=== PATIENT | male | born 1965 | race Caucasian/White ===

== ENCOUNTER → 2025-08-10 15:38 | Outpatient (REF) | payer OTHER, SELFPAY | LOC: HWRAD 15:38 | PROVIDERS: ATTENDING PHYSICIAN Nurse Practitioner Adult Health | DX: M54.12 Radiculopathy, cervical region (principal) | CPT/HCPCS: 72050 ==

== ENCOUNTER → 2025-09-24 17:13 | Outpatient (REF) | payer OTHER, SELFPAY | LOC: PAVMRI 17:13 | PROVIDERS: ATTENDING PHYSICIAN Nurse Practitioner Adult Health | DX: M54.12 Radiculopathy, cervical region (principal); M50.30 Other cervical disc degeneration, unspecified cervical region; M48.02 Spinal stenosis, cervical region; Z91.81 History of falling | CPT/HCPCS: 72141 ==

== ENCOUNTER 2025-09-30 12:43 | Emergency (ER) | payer OTHER, SELFPAY ==
[2025-09-30 12:45] VITALS: BP 141/88
[2025-09-30] MEDS: DECADRON 10 MG PO (16:44)
[2025-09-30] MEDS: TORADOL 30 MG IM (16:44)
--- NOTE | 2025-09-30 16:55 | ED.GENMED ---
History of Present Illness
General
Chief Complaint: Musculo-Skeletal Complaint
Source: patient
Exam Limitations: none
Time Seen by Provider: 09/30/25 16:13
Nursing documentation reviewed up to this point in time: agreed with
History of Present Illness
History of Present Illness:
60-year-old male presenting to the emergency department today with concerns of discomfort to his back that started 5 days ago now with some radiation of symptoms down to the left thigh and left knee. She is do worse with some positions and
movement. Seems to be improved finding a comfortable position. Denies any change in bowel or bladder function denies any fevers no redness or warmth.
Past History
Past History
ED Past Medical History: Psychiatric (anxiety) and Other (covid-19 12/2019)
ED Past Surgical History: Orthopedic
Social History
Tobacco: Non-smoker
Alcohol: Occasional
Drug: None
Living: with family
Employment: Employed
Family History
Family History: Early CAD (Brother had TX in his 50s)
Review of Systems
Review of Systems
Allergies reviewed?: Yes
All Other Systems: ROS reviewed and negative except as documented in HPI and ROS
Phy Exam
Physical Exam
Physical Exam:
GENERAL: Alert , in no apparent distress
EYE: pupils equal and reactive
NECK: Supple, no significant adenopathy.
ENT: o/p clr, mmm.
CARDIAC: Regular rate and rhythm .
LUNGS: Clear breath sounds bilaterally, no acute respiratory distress, no wheezes/rales/rhonchi
ABDOMEN: Soft, without focal tenderness, no r/g, no cvat
NEUROLOGICAL: Alert and oriented, no focal neuro deficits
SKIN: Warm and dry, skin intact.
MUSCULOSKELETAL: No edema, well perfused.
PSYCH: Normal and appropriate interaction.
Course
Orders/Labs/Results
Orders:
Orders
09/30/25 12:49
Lumbar Spine, 2 or 3 View [CR Lumbar Spine 2 Or 3 Views] Urgent
Comment:
Reason For Exam: lower back/leg pain
09/30/25 16:27
Dexamethasone Pf [Decadron] 10 mg PO NOW STA
Ketorolac [Toradol] 30 mg IM NOW STA
Vital Signs
Initial and Last Documented VS:
Initial Vital Signs
Temp Pulse Resp BP Pulse Ox
97.7 F 72 18 141/88 97
09/30/25 12:45 09/30/25 12:45 09/30/25 12:45 09/30/25 12:45 09/30/25 12:45
Last Documented Vital Signs
Temp Pulse Resp BP Pulse Ox
97.7 F 72 18 141/88 97
09/30/25 12:45 09/30/25 12:45 09/30/25 12:45 09/30/25 12:45 09/30/25 16:56
MDM/Problems Addressed
MDM/Problems Addressed:
60-year-old male presenting to the emergency department today with concerns of discomfort to his left low back with radiation down the left leg to the left thigh and knee. Also has had some intermittent muscle spasms. Denies any bowel or bladder
changes. Vital signs normal on arrival. No evidence of infection. Good range of motion. No reproducible pain. No trauma. X-ray showing degenerative disc disease at L5-S1. Patient with likely mechanical back pain. Plan for symptomatic
treatment otherwise close outpatient follow-up. Return precautions given.
*Pulse Oximetry
SaO2: 97
Oxygen Mode of Delivery: Room air
Patient hypoxic: no (97)
*Critical Care Note
Total Time (30-74mins, 75-104mins- exclusive of procedures): Not Applicable
ED Attending Note
-
Portions of this chart may have been created with voice recognition software.� Occasional wrong word or��sound alike� substitutions may have occurred due to the inherent limitations of voice recognition software.
Discharge Plan
Departure
Patient Disposition: Home (Routine Discharge)
Date of Disposition: 09/30/25
Time of Disposition: 16:56
Patient with high blood pressure during this ER visit?: No
Condition: Good
Covid-19: Not Applicable
Discharge Problem:
Mechanical back pain
Instructions: Back exercises, Back Pain
Prescriptions:
New
cyclobenzaprine 10 mg tablet
10 mg PO BID PRN (Reason: back pain) Qty: 7 0RF
prednisone 20 mg tablet
40 mg PO DAILY 4 Days Qty: 8 0RF
No Action
cetirizine 10 MG tablet
10 mg PO DAILY
sertraline 100 MG tablet
100 mg PO DAILY
[id number] [Osteo Bi-Flex (5-Loxin)] 1 EACH tablet
1 ea PO DAILY
multivitamin with folic acid [Tab-A-Tavo] 1 TABLET tablet
1 tab PO DAILY
meclizine 25 mg tablet
25 mg PO BID PRN (Reason: dizziness) Qty: 14 0RF
Referrals:
Breezy Lopes MD [Active, Anesthesiology] - Follow up in 2-3 days
Rachel Cullen CRNP [Family Provider, General]
Activity Restrictions/Additional Instructions:
You came to the emergency department today with concerns of back pain as well as left leg pain. This is likely from mechanical back issue. Please take the prescribed occasion and follow closely with the back doctor. Return for any worsening, new
or concerning symptoms.
Interventions
Interventions:
*General Assessment Last Done: 09/30/25 12:45
*Neglect/Abuse Screening Last Done: 09/30/25 12:45
*ED COVID-19 Vaccine History Last Done: 09/30/25 17:02
*ED Influenza Vaccine History Last Done: 09/30/25 17:02
[facility] Risk Assessment Tool Last Done: 09/30/25 16:58
*Risk Screen - Suicide (C-SSRS) Last Done: 09/30/25 12:45
*Nursing Disposition Last Done: 09/30/25 17:02
ED-Musculoskeletal Assessment Last Done: 09/30/25 17:02
Discharge Date and Time
Print Language: GREEK
[2025-09-30 17:02] VITALS: BP 135/74
== END 2025-09-30 17:03 | disposition home or self-care (01) ==
LOC: EMR 12:43
PROVIDERS: EMERGENCY PHYSICIAN Student in an Organized Health Care Education/Training Program; FAMILY PHYSICIAN Nurse Practitioner Adult Health
DX: M51.372 Other intervertebral disc degeneration, lumbosacral region with discogenic back pain and lower extremity pain (principal); F41.9 Anxiety disorder, unspecified; Z86.16 Personal history of COVID-19
CPT/HCPCS: 99284; 96372; 72100